=== PATIENT | female | born 1945 | race Caucasian/White ===

== ENCOUNTER → 2021-01-13 | Outpatient (CLI) | payer OTHER | LOC: SJCVC 12:31 | PROVIDERS: ATTEND Nuclear Medicine Nuclear Cardiology | DX: I77.1 Stricture of artery (principal); I77.9 Disorder of arteries and arterioles, unspecified; I47.1 Supraventricular tachycardia; I10 Essential (primary) hypertension; E03.9 Hypothyroidism, unspecified; J45.909 Unspecified asthma, uncomplicated; K21.9 Gastro-esophageal reflux disease without esophagitis; I65.29 Occlusion and stenosis of unspecified carotid artery; E05.00 Thyrotoxicosis with diffuse goiter without thyrotoxic crisis or storm; M19.90 Unspecified osteoarthritis, unspecified site; Z87.891 Personal history of nicotine dependence; Z72.89 Other problems related to lifestyle; Z79.899 Other long term (current) drug therapy; Z88.5 Allergy status to narcotic agent; Z88.1 Allergy status to other antibiotic agents; Z88.8 Allergy status to other drugs, medicaments and biological substances ==

== ENCOUNTER → 2021-01-25 | Outpatient (CLI) | payer OTHER ==
[~2021-01-25] VITALS: Ht 157.5 cm; Wt 63.0 kg
[~2021-01-25] MED LIST: ASA81BEC PO; CALCIUM GLUCONA50 MG PO; LEVO-T50 MCG PO; LIPITOR 40 MG T40 M1 PO; OMEPRAZOLE20 M1 PO; PLAVIX 75 MG TA75 MG PO; PROAIR HFA8.5 GM INH; TOPROL XL50 MG PO; VITAMIN D-40010 MCG PO
[2021-01-25 10:50] LABS: HEMATOCRIT 41.9 % (37.0-47.0); HEMOGLOBIN 13.7 gm/dL (12.0-15.0); MCH 29.4 pg (26.0-34.0); MCHC 32.8 g/dL (28.0-37.0); MCV 89.5 fL (80.0-100.0); RBC 4.68 mil/uL (4.20-5.00); RDW 13.7 % (10.5-14.5); WBC 6.4 thou/uL (4.0-11.0)
[2021-01-25 10:54] VITALS: BP 148/83
[2021-01-25 11:07] LABS: CALCIUM 9.2 mg/dL (8.5-10.1); POTASSIUM 3.7 mmol/L (3.5-5.1)
== END | disposition home or self-care (01) ==
LOC: CATH 07:10
PROVIDERS: ATTEND Nuclear Medicine Nuclear Cardiology
DX: I65.23 Occlusion and stenosis of bilateral carotid arteries (principal); I70.1 Atherosclerosis of renal artery; I70.8 Atherosclerosis of other arteries; M79.604 Pain in right leg; M79.605 Pain in left leg; I10 Essential (primary) hypertension; E03.9 Hypothyroidism, unspecified; J45.909 Unspecified asthma, uncomplicated; K21.9 Gastro-esophageal reflux disease without esophagitis; M81.0 Age-related osteoporosis without current pathological fracture; E78.5 Hyperlipidemia, unspecified; Z98.890 Other specified postprocedural states; Z79.899 Other long term (current) drug therapy; Z98.51 Tubal ligation status; Z87.891 Personal history of nicotine dependence

== ENCOUNTER 2021-02-20 06:28 | Inpatient (IN) | payer OTHER ==
[~2021-02-20] VITALS: Ht 157.5 cm; Wt 66.9 kg
[2021-02-20 07:40] VITALS: BP 126/46
[2021-02-20 08:52] LABS: HEMATOCRIT 39.3 % (37.0-47.0); HEMOGLOBIN 12.7 gm/dL (12.0-15.0); MCH 29.3 pg (26.0-34.0); MCHC 32.4 g/dL (28.0-37.0); MCV 90.5 fL (80.0-100.0); RBC 4.35 mil/uL (4.20-5.00); RDW 13.7 % (10.5-14.5); WBC 4.1 thou/uL (4.0-11.0)
[2021-02-20 09:00] LABS: CREATININE 0.8 mg/dL (0.6-1.0); POTASSIUM 4.2 mmol/L (3.5-5.1)
[2021-02-20 09:08] LABS: INR 1.01
[2021-02-20 09:12] LABS: APTT 87.7 Seconds (24.5-32.8)
[2021-02-20 11:30] VITALS: BP 122/44
[2021-02-20 11:45] LABS: CHOLESTEROL 214 mg/dL (<200); HDL CHOLESTEROL 45 mg/dL (>40); LDL CHOLESTEROL 152 mg/dL (<100); TC:HDL 4.8 Ratio (Not establshd); TRIGLYCERIDE 87 mg/dL (<150); VLDL 17 mg/dL (<40)
[2021-02-20 15:05] VITALS: BP 117/45
--- NOTE | 2021-02-20 18:21 | NUR ---
PT ADMITED FROM [facility]. ADMISSION HX AND ASSESSMENT COMPLETED. VSS. DR LINARES AND DR. ESQUIVEL NOTIFIED. ORDERS NOTED. HEPARIN GTT INFUSING PER PROTOCAL. SR ON TELE. NO CONCERNS AT THIS TIME.
[2021-02-20 19:44] VITALS: BP 119/43
[2021-02-21 04:44] VITALS: BP 109/43
[2021-02-21 08:41] VITALS: BP 113/58
[2021-02-21 12:17] VITALS: BP 143/53
--- NOTE | 2021-02-21 16:33 | NUR ---
ASSESSMENT CHARTED. PT ALERT AND ORIENTED. DENIED HAVING PAIN OR DISCOMFORT. VSS. SR ON TELE. NO CONCERNS AT THIS TIME.
[2021-02-21 16:48] VITALS: BP 115/49
[2021-02-21 20:55] VITALS: BP 148/54
[2021-02-22 04:30] VITALS: BP 118/52
--- NOTE | 2021-02-22 06:40 | NUR ---
pt resting quietly in room thru the noc, heparin infusing to r ac, no c/o pain, vss, plan echo and nuc stress test today, pt awoke from sleep at beginning of shift and screamed out she didn't know where she was or how she got here, reoriented and she said her memory came back, will con't to monitor per ppoc.
[2021-02-22 07:23] VITALS: BP 148/66
--- NOTE | 2021-02-22 07:35 | EKG ---
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1945 Requested By: Montez Arciniega Order Number: [id number] MD: Real Del Cid Measurements Intervals Stuart Rate: 62 P: 13 DE: 156 QRS: -16 QRSD: 124 T: 21 QT: 419 QTc: 426 Interpretive Statements Sinus rhythm Probable left atrial enlargement IVCD, consider atypical RBBB Inferior infarct, old Baseline wander in lead(s) V3 Compared to ECG 02/17/2005 07:48:06 Myocardial infarct finding now present Sinus bradycardia no longer present Electronically Signed On 02-22-2021 7:35:21 CLINICAL REGISTERED NURSE by Real Del Cid [email or web address] <ELECTRONICALLY SIGNED> By: Real Del Cid MD, FACC 02/22/21 0735 8 8 Real Del Cid MD, FAC /EPI
--- NOTE | 2021-02-22 07:36 | EKG ---
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1945 Requested By: Montez Arciniega Order Number: [id number] MD: Real Del Cid Measurements Intervals [place] Rate: 60 P: 12 MD: 174 QRS: -18 QRSD: 129 T: 15 QT: 441 QTc: 441 Interpretive Statements Sinus rhythm Right bundle branch block Inferior infarct, old Baseline wander in lead(s) V4 Compared to ECG 02/20/2021 09:19:13 No significant changes Electronically Signed On 02-22-2021 7:36:18 PATIENT SAFETY MANAGER by Real Del Cid [email or web address] <ELECTRONICALLY SIGNED> By: Real Del Cid MD, [facility] 02/22/21 0736 16 16 Real Del Cid MD, FAC /EPI
--- NOTE | 2021-02-22 09:38 | 2DMMODE ---
[facility] [address] [place] [address] 2 D/M-MODE ECHOCARDIOGRAM Name: CHARMAINE LIRA Room #: 211-P ADM IN M.R.#: [id number] Admission: 02/20/21 Attend Phys: Rosio Rivas Marthasuresh Discharge: Date of : 47 Report #: [id number] THIS REPORT FOR: cc: Jeremy Gutierrez James L. DO Lammoglia, Francisco J. MD ~ APPROVED REPORT Study performed: 02/22/2021 09:14:09 EXAM: Comprehensive 2D, Doppler, and color-flow Echocardiogram Patient Location: Bedside Room #: 211 Status: routine BSA: 1.63 HR: 71 bpm BP: 118/52 mmHg Rhythm: NSR Other Information Study Quality: Adequate Indications Chest pain, elevated troponin. Hx: VT, ablation, PVD. 2D Dimensions RVDd: 28.62 mm IVSd: 11.75 (7-11mm) LVOT Diam: 19.34 (18-24mm) LVDd: 40.54 mm PWd: 10.35 (7-11mm) Ascending Ao: 32.25 (22-36mm) LVDs: 23.90 (25-40mm) Left Atrium: 28.64 (27-40mm) Aortic Root: 28.25 mm Volumes Left Atrial Volume (Systole) Single Plane 4CH: 26.00 mL Single Plane 2CH: 26.24 mL LA ESV Index: 17.00 mL/m2 Aortic Valve AoV Peak Ezekiel.: 1.34 m/s AO Peak Gr.: 7.23 mmHg LVOT Max P.05 mmHg LVOT Max V: 1.01 m/s [facility] [place] [address] [place] [address] 2 D/M-MODE ECHOCARDIOGRAM Name: CHRAMAINE LIRA Room #: 211-P [facility] IN ..#: [id number] Admission: 02/20/21 Attend Phys: Rosio Rivas Jun Discharge: Date of : 47 Report #: [id number] KAYODE Vmax: 2.20 cm2 Mitral Valve E/A Ratio: 0.8 MV Decel. Time: 281.43 ms MV E Max Ezekiel.: 0.96 m/s MV A Ezekiel.: 1.18 m/s MV PHT: 81.61 ms IVRT: 92.27 ms Pulmonary Valve PV Peak Ezekiel.: 0.93 m/s PV Peak Gr.: 3.46 mmHg Pulmonary Vein P Vein S: 0.60 m/s P Vein D: 0.38 m/s P Vein S/D Ratio: 1.58 Tricuspid Valve TR Peak Ezekiel.: 2.43 m/s RAP Estimate: 5.00 mmHg TR Peak Gr.: 24.00 mmHg PA Pressure: 29.00 mmHg Left Ventricle The left ventricle is normal size. There is normal LV segmental wall motion. There is normal left ventricular wall thickness. Left ventricular systolic function is normal. LVEF is 60%. Mild diastolic dysfunction is present (impaired relaxation pattern). Right Ventricle The right ventricle is normal size. The right ventricular systolic function is normal. Atria The left atrium size is normal. The right atrium size is normal. Aortic Valve The aortic valve is normal in structure. No aortic regurgitation is present. There is no aortic valvular stenosis. Mitral Valve The mitral valve is normal in structure. Trace mitral regurgitation. No evidence of mitral valve stenosis. Tricuspid Valve [facility] [address] [place] [address] 2 D/M-MODE ECHOCARDIOGRAM Name: LIRACHARMAINE Room #: 211-P [facility] IN M.R.#: [id number] Admission: 02/20/21 Attend Phys: Rosio Thomas Discharge: Date of : 47 Report #: [id number] The tricuspid valve is normal in structure. Trace tricuspid regurgitation. Estimated PAP is 29mmHg. Pulmonic Valve The pulmonary valve is normal in structure. Mild pulmonic regurgitation. Great Vessels The aortic root is normal in size. The ascending aorta is normal in size. IVC is normal in size and collapses >50% with inspiration. Pericardium There is no pericardial effusion. <Conclusion> The left ventricle is normal size. There is normal LV segmental wall motion. LVEF is 60%. The right ventricle is normal size. The left atrium size is normal. The aortic valve is normal in structure. The mitral valve is normal in structure. Trace mitral regurgitation. The tricuspid valve is normal in structure. Trace tricuspid regurgitation. Estimated PAP is 29mmHg. The pulmonary valve is normal in structure. Mild pulmonic regurgitation. The aortic root is normal in size. There is no pericardial effusion. <ELECTRONICALLY SIGNED> By: Keo Moss MD 02/22/21937 7 7 Keo Moss MD /INF
[2021-02-22 11:22] VITALS: BP 131/53
--- NOTE | 2021-02-22 11:55 | NUR ---
O.T. VARIANCE: MET W/ PT TO INITIATE O.T. EVALUATION. PER NURSING, PT HAS BEEN UP AD L[place]BET TO GO TO RESTROOM, ONLY ASSIST TO UNPLUG I.V. PT POLITELY DECLINING O.T. EVAL AT THIS TIME, DUE TO NO CONCERNS OF RETURNING HOME AND CARING FOR SELF AT D/C AFTER MEDICALLY CLEARED. PT DEMO'D FOR O.T. TO OBSERVE SAFE AMB'ING, ABILITY TO PUSH OWN I.V. POLE, TO/FROM THE RESTROOM AND USED THE RESTROOM WHILE UP INDEPENDENTLY. O.T. TO SIGN OFF AT THIS TIME, PLEASE RE-CONSULT IF NEEDS ARISE. THANK YOU.
--- NOTE | 2021-02-22 12:07 | NUR ---
ORDERS RECEIVED FOR PT EVAL AND TREAT. Pt UP IN BATHROOM AND HAD JUST FINISHED A SHOWER. IN ROOM. Pt REQUESTED ASSIST TO TIE NEW GOWN. Pt DECLINING PT NEEDS AT THIS TIME; HAS BEEN GETTING UP ON HER OWN W/ IV POLE. DECLINED NEED FOR PT AT THIS TIME. GOING FOR STRESS TEST TODAY. ACUTE PT TO SIGN OFF.
--- NOTE | 2021-02-22 12:23 | NUR ---
HEPARIN GTT STOPPED AND DISCONNECTED FOR PATIENT TO GO DOWN FOR STRESS TEST.
[2021-02-22 15:11] VITALS: BP 129/52
--- NOTE | 2021-02-22 18:21 | NUR ---
NO FALLS OR INJURIES THIS SHIFT. ALL SAFETY MEASURES IN PLACE. NO C/O PAIN. VSS. PATIENT UP WITH SBA. NPO ALL MORNING FOR STRESS TEST. EATING DINNER AT THIS TIME. NPO AFTER MIDNIGHT FOR POSSIBLE HEART CATH. HEPARIN TAKEN OFF FOR STRESS TEST THIS AFTERNOON. MORNING MEDICATIONS GIVEN AND APTT REDRAWN AND HEPARIN RESTARTED AT 1815 AT THE RATE OF 7.5ML/HR. RECHECK SCHEDULED AT 0015. DAUGHTER CURRENTLY AT THE BEDSIDE. PATIENT WILL DC HOME ONCE MEDICALLY STABLE.
[2021-02-22 20:42] VITALS: BP 119/47
[2021-02-23 00:36] LABS: HEMATOCRIT 38.8 % (37.0-47.0); HEMOGLOBIN 12.2 gm/dL (12.0-15.0); MCH 29.4 pg (26.0-34.0); MCHC 31.5 g/dL (28.0-37.0); MCV 93.3 fL (80.0-100.0); RBC 4.16 mil/uL (4.20-5.00); RDW 14.2 % (10.5-14.5); WBC 4.7 thou/uL (4.0-11.0)
[2021-02-23 00:39] LABS: CALCIUM 8.6 mg/dL (8.5-10.1); CREATININE 0.8 mg/dL (0.6-1.0); POTASSIUM 3.4 mmol/L (3.5-5.1)
[2021-02-23 03:36] VITALS: BP 108/42
--- NOTE | 2021-02-23 06:11 | NUR ---
PATIENT A&O, SR/SB, RA THROUGHOUT NIGHT. PATENT IV STILL PRESENT. PATIENT AMBULATED TO THE BATHROOM A COUPLE TIMES DURING THE NIGHT WITH STANDBY ASSIST. NO COMPLAINTS OF PAIN. HEPARIN GTT STILL RUNNING. PATIENT NPO SINCE MIDNIGHT. PATIENT RESTING COMFORTABLY AT THIS TIME.
[2021-02-23 07:27] VITALS: BP 121/65
[2021-02-23 10:56] VITALS: BP 133/55
[2021-02-23 15:27] VITALS: BP 125/70
[2021-02-23] MEDS ORDERED: IMDUR 30 MG TAB30 M1 PO (17:11)
--- NOTE | 2021-02-23 17:17 | NUR ---
Chart reveiwed and case discussed with the care team. Pt had cath today. Home this afternoon with her spouse. Up ad cory and cleared by therapy. No cm interventions indicated at this time. Case not opened.
--- NOTE | 2021-02-23 18:11 | NUR ---
ASSESSMENT CHARTED - MEDS PER JUN - EMMANUEL DIET AND FLUIDS. PT TO THE VISCOSITY WORKER THIS AFTERNOON - NO INTERVENTION. VSS AND GROIN STABLE POST CATH AND POST BEDREST. PT ABLE TO GO HOME THIS EVEINGING. NO CO'S AT THE PRESENT TIME.
[2021-02-23 18:20] VITALS: BP 125/70
--- NOTE | 2021-02-28 15:33 | CATHLAB ---
[facility] [place] [address] INVASIVE PROCEDURE REPORT Name: CHARMAINE LIRA Room #: 211-P DIS IN M.R.#: [id number] Admission: 02/20/21 Attend Phys: Rosio Rivas David Discharge: 02/23/21 Date of : 47 Report #: [id number] THIS REPORT FOR: cc: Jeremy Gutierrez James L. DO Lammoglia, Francisco J. MD ~ APPROVED REPORT Study performed: 02/23/2021 12:15:12 Patient Details Patient Status: In-Patient Room #: 211 The patient is a 76 year-old female Event Personnel Keo Moss Revenue Collector, [place] Pastor RTR Monitor, Vida Anderson RTR, LEFTY JeromeubHilton Jessica RN manager commercial real estate Performed Art Access - R femoral artery* Left Heart Cath w/or w/o Coronaries [id number] [facility] Hemostasis with Manual pressure 05568 Initial Mod Sed Same Phys/QHP Gr 940445 88562 Mod Sed Same Phys/QHP Ea 814046, supervision of conscious sedation Indication Non-STEMI , Positive stress test, Chest pain Procedure Narrative The Right Groin^ was infiltrated with 1% Lidocaine subcutaneous anesthesia. A PINNACLE 4FR Sheath #[id number] sheath was inserted into the right femoral artery. Coronary angiography was performed using coronary diagnostic catheters. The right coronary system was accessed and visualized with a JR4 catheter. The left coronary system was accessed and visualized with a JL4 catheter. The left ventricle was accessed and visualized with a PIGTAIL catheter. Hemostasis was obtained with manual pressure following sheath removal without any complications. The patient tolerated the procedure well and there were no complications associated with the procedure. There was no hematoma. Intraoperative Conscious Sedation Sedation start time: 12:32 Case end Time: 13:20 [facility] [place] [address] INVASIVE PROCEDURE REPORT Name: CHARMAINE LIRA Room #: 211-P [facility] IN ..#: [id number] Admission: 02/20/21 Attend Phys: Rosio Thomas Discharge: 02/23/21 Date of : 47 Report #: [id number] Versed 2.5 mg Fluoro Time: 1.60 minutes Dose: DAP 1497.60 cGycm2 238 mGy Contrast Type and Amount: Omnipaque 45 ml Coronary Angiography The patient's coronary anatomy is right dominant. Diagnostic Cath Left Main Moderate to large caliber vessel normal origin bifurcates left and descending left circumflex free of high-grade disease. There is evidence of epicardial calcifications on fluoroscopy LAD Moderate caliber type III vessel which rapidly tapers from its origin towards the termination of posterior inferior wall. Gives rise to septal diagonal branches the procedure in the anterior interventricular sulcus. There are several points that appear to be isolated lesions of 50% or less which do not appear to be flow-limiting Diagonal 1 Small caliber vessel without significant high-grade lesions noted Diagonal 2 Small caliber vessel without significant obstructive plaquing identified Circumflex Small to diminutive size nondominant vessel gives us an early marginal branch at the continues posteriorly giving rise to a second marginal branch terminates a small terminal portion the posterior aspect left ventricle. There is mild irregularities of less than 30% noted throughout. At its origin there appears to be a little bit more prominence irregularity lesion but is still less than 50 OM1 Small insignificant caliber vessel with a second OM2 Small insignificant caliber vessel without significant stent Right Coronary Large-caliber dominant vessel proceeds in AV groove giving rise to atrioventricular branches. Then proceeds to the crux of the heart prior to which gave 2's small posterior wall branches and then a moderate to large caliber posterior descending artery which extends towards the apex and the posterior interventricular sulcus. The vessel then terminates as a small moderate caliber posterior lateral branch and artery to the AV node is noted. Irregularities of less than 30 to 40% are noted throughout its course R PDA Monitor large-caliber vessel without significant high-grade lesions noted but [place] [address] INVASIVE PROCEDURE REPORT Name: CHARMAINE LIRA Room #: 211-P DIS IN M.R.#: [id number] Admission: 02/20/21 Attend Phys: Rosio Thomas Discharge: 02/23/21 Date of : 47 Report #: [id number] Left Ventriculography Left Ventriculography was not performed. Hemodynamics The aortic pressure is 173/69 mmHg with a mean of 76 mmHg. The left ventricular pressure is 166/1 mmHg with a mean of mmHg. The left ventricular end diastolic pressure is 24 mmHg. Conclusion 1. 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 Abnormal dynamics of 11 trigger end-diastolic pressure Recommendations Cardiac Risk Reduction Program Medical Therapy <ELECTRONICALLY SIGNED> By: Keo Moss MD 02/28/21 1533 1533 1533 Keo Moss MD /INF
== END 2021-02-23 19:02 | disposition home or self-care (01) | DRG 281 ==
LOC: 2N 06:28
PROVIDERS: Hospitalist; Internal Medicine; Nurse Practitioner; ADMIT Hospitalist; ATTEND Hospitalist
DX: I21.4 Non-ST elevation (NSTEMI) myocardial infarction (principal); D68.69 Other thrombophilia; I77.1 Stricture of artery; I73.9 Peripheral vascular disease, unspecified; I10 Essential (primary) hypertension; E03.9 Hypothyroidism, unspecified; K21.9 Gastro-esophageal reflux disease without esophagitis; J45.909 Unspecified asthma, uncomplicated; I70.8 Atherosclerosis of other arteries; M81.0 Age-related osteoporosis without current pathological fracture; E78.5 Hyperlipidemia, unspecified; I25.10 Atherosclerotic heart disease of native coronary artery without angina pectoris; E78.00 Pure hypercholesterolemia, unspecified; Z79.899 Other long term (current) drug therapy; Z88.8 Allergy status to other drugs, medicaments and biological substances; Z88.6 Allergy status to analgesic agent; Z88.1 Allergy status to other antibiotic agents; Z91.041 Radiographic dye allergy status; Z87.891 Personal history of nicotine dependence
CPT/HCPCS: 10081; 10797

== ENCOUNTER → 2021-05-25 | Outpatient (CLI) | payer OTHER ==
[~2021-05-25] MED LIST changes: +IMDUR 30 MG TAB30 M1 PO
== END ==
LOC: SJCVCIMAG 13:43
PROVIDERS: ATTEND Nuclear Medicine Nuclear Cardiology
DX: I65.23 Occlusion and stenosis of bilateral carotid arteries (principal); I77.9 Disorder of arteries and arterioles, unspecified; I77.1 Stricture of artery; I10 Essential (primary) hypertension; E78.00 Pure hypercholesterolemia, unspecified; J45.909 Unspecified asthma, uncomplicated; Z87.891 Personal history of nicotine dependence; Z88.1 Allergy status to other antibiotic agents; Z88.5 Allergy status to narcotic agent; Z88.8 Allergy status to other drugs, medicaments and biological substances; Z82.49 Family history of ischemic heart disease and other diseases of the circulatory system